=== PATIENT | female | born 1995 | race Caucasian/White ===

== ENCOUNTER 2017-10-21 22:35 | Emergency (ER) | payer BC, OTHER | END 2017-10-22 01:19 | disposition home or self-care (01) | LOC: FTE 22:35 | DX: S01.81XA Laceration without foreign body of other part of head, initial encounter (principal); W22.8XXA Striking against or struck by other objects, initial encounter; Y92.520 Airport as the place of occurrence of the external cause | CPT/HCPCS: 99283 ==